=== PATIENT | female | born 1980 | race African-American/Black ===

== ENCOUNTER 2018-02-25 17:53 | Inpatient (IN) | payer OTHER ==
[2018-02-25 19:48] VITALS: BMI 26.2
[2018-02-25] MEDS ORDERED: MELATONIN 5 MG TABLETS PO PRN (22:00)
--- NOTE | 2018-02-25 22:05 | HP ---
CIWA Score - CIWA Score Nausea/Vomitin-No Nausea/No Vomiting Muscle Tremors: 4-Moderate,w/Arms Extend Anxiety: 4-Mod. Anxious/Guarded Agitation: 4-Moderately Restless Paroxysmal Sweats: 3 Orientation: 0-Oriented Tacttile Disturbances: 3-Moderate Itch/Numb/Burn Auditory Disturbances: 0-None Visual Disturbances: 0-None Headache: 0-None Present CIWA-Ar Total Score: 18 Admission ROS BHS - HPI Chief Complaint: C/O WITHDRAWAL SX'S. SEEKING DETOX TXMENT FOR ALCOHOL DEPENDENCE Allergies/Adverse Reactions: Allergies Allergy/AdvReac Type Severity Reaction Status Date / Time No Known Allergies Allergy Verified 02/25/18 21:11 History of Present Illness: 37 Y.O. FEMALE WITH LONG HX/ O ALCOHOL DEPENDENCE AND BENZO USE (RX) HERE FOR DETOX. CLIENT IS KNOWN TO THIS PROGRAM. LAST HERE SEVERAL YEARS AGO. DENIES RECENT INPATIENT DRUG TXMENT PROGRAM. REFERRED BY HER OOTPATIENT TXMENT PROGRAM PAT. REPORTS LONGEST CLEAN TIME 7 MONTHS WITH RECENT RELAPSE. Exam Limitations: No Limitations - Ebola screening Have you traveled outside of the country in the last 21 days: No Have you had contact with anyone from an Ebola affected area: No Have you been sick,other than usual withdrawal symptoms: No Do you have a fever: No - Review of Systems Constitutional: No Symptoms Reported EENT: reports: Dental Problems (MISSING TEETH) Respiratory: reports: No Symptoms reported Cardiac: reports: No Symptoms Reported GI: reports: No Symptoms Reported : reports: No Symptoms Reported Integumentary: reports: No Symptoms Reported Neuro: reports: No Symptoms reported Endocrine: reports: Other (DM) Hematology: reports: No Symptoms Reported Psychiatric: reports: Anxious Other Systems: Reviewed and Negative Patient History - Patient Medical History Hx Anemia: No Hx Asthma: No Hx Chronic Obstructive Pulmonary Disease (COPD): No Hx Cancer: Yes (ovarian) Hx Cardiac Disorders: No Hx Congestive Heart Failure: No Hx Hypertension: No Hx Hypercholesterolemia: No Hx Pacemaker: No HX Cerebrovascular Accident: No Hx Seizures: No Hx Dementia: No Hx Diabetes: Yes Hx Gastrointestinal Disorders: No Hx Liver Disease: No Hx Genitourinary Disorders: No Hx Sexually Transmitted Disorders: No Hx Renal Disease (ESRD): No Hx Thyroid Disease: No Hx Human Immunodeficiency Virus (HIV): No Hx Hepatitis C: No Hx Depression: No Hx Suicide Attempt: Yes (10 YEARS AGO: DENIES PRESNT THOUGHTS) Hx Bipolar Disorder: No Hx Schizophrenia: No Other Medical History: ANXIETY - Patient Surgical History Past Surgical History: No Hx Neurologic Surgery: No Hx Cataract Extraction: No Hx Cardiac Surgery: No Hx Lung Surgery: No Hx Breast Surgery: No Hx Breast Biopsy: No Hx Abdominal Surgery: No Hx Appendectomy: No Hx Cholecystectomy: No Hx Genitourinary Surgery: No Hx Section: No Hx Orthopedic Surgery: No Anesthesia Reaction: No - PPD History Previous Implant?: Yes Documented Results: Negative w/o proof Implanted On Prior [facility] Admission?: No Date: 09/26/12 PPD to be Administered?: Yes - Reproductive History Patient is a Female of Child Bearing Age (11 -55 yrs old): Yes Last Menstrual Period: 01/27/18 LMP comment: REG Patient : No (NEG C) - Smoking Cessation Smoking history: Current every day smoker Have you smoked in the past 12 months: Yes Aproximately how many cigarettes per day: 6 Cigars Per Day: 0 Hx Chewing Tobacco Use: No Initiated information on smoking cessation: Yes 'Breaking Loose' booklet given: 02/25/18 - Substance & Tx. History Hx Alcohol Use: Yes Hx Substance Use: Yes Substance Use Type: Alcohol, Cocaine, Prescribed (XANAX) Hx Substance Use Treatment: Yes ([facility]) - Substances Abused Alcohol Route: Oral Frequency: Daily Amount used: beer- 3 - 22oz cans Age of first use: 18 Date of Last Use: 02/25/18 Cocaine Route: Smoking Frequency: Daily Amount used: 2 bags Age of first use: 18 Date of Last Use: 02/24/18 RX XANAX Route: Oral Frequency: Daily Amount used: 1MG Age of first use: 36 Date of Last Use: 02/22/18 Family Disease History - Family Disease History Family Disease History: Diabetes: Mother (ALCOHOLISM/DRUG/), CA: Father (ALCOHOLISM/DRUG/), Other: Father, Mother Admission Physical Exam S - Vital Signs Vital Signs: Vital Signs - 24 hr 02/25/18 19:39 Temperature 97.0 F L Pulse Rate 90 Respiratory 18 Rate Blood Pressure 132/85 - Physical General Appearance: Yes: Appropriately Dressed, Tremorous, Anxious HEENTM: Yes: EOMI, Normocephalic, Normal Voice, LAURYN, Pharynx Normal, Other ( MISSING TEETH/ POOR DENTITION) Respiratory: Yes: Chest Non-Tender, Lungs Clear, Normal Breath Sounds, No Respiratory Distress, No Accessory Muscle Use Neck: Yes: No masses,lesions,Nodules, Supple, Trachea in good position Breast: Yes: Breast Exam Deferred Cardiology: Yes: Regular Rhythm, S1, S2, Tachycardia Abdominal: Yes: Normal Bowel Sounds, Non Tender, Soft, Protuberent Genitourinary: Yes: Within Normal Limits (NO C/O) Back: Yes: Normal Inspection Musculoskeletal: Yes: full range of Motion, Gait Steady Extremities: Yes: Normal Capillary Refill, Normal Range of Motion, Non-Tender, Tremors Neurological: Yes: court monitor II-XII NML intact, Fully Oriented, Alert, Motor Strength 5/5 Integumentary: Yes: Normal Color, Dry, Warm Lymphatic: Yes: Within Normal Limits - Diagnostic (1) Alcohol dependence with uncomplicated withdrawal Current Visit: Yes Status: Chronic (2) Sedative, hypnotic or anxiolytic dependence, uncomplicated Current Visit: Yes Status: Chronic (3) Cocaine abuse, uncomplicated Current Visit: Yes Status: Chronic (4) Nicotine dependence Current Visit: Yes Status: Chronic Qualifiers: Nicotine product type: cigarettes Substance use status: uncomplicated Qualified Code(s): F17.210 - Nicotine dependence, cigarettes, uncomplicated (5) Diabetes Current Visit: Yes Status: Chronic Cleared for Admission [facility] - Detox or Rehab [facility] Level of Care: Medically Managed Detox Regimen/Protocol: Valium (CLIENT PREFERENCE) Claeared for Rehab Admission: No S Breath Alcohol Content Breath Alcohol Content: 0.033 Urine Pregancy Test - Result Urine Test Results: Negative- NO Line Present Urine Drug Screen - Results Drug Screen Negative: No Urine Drug Screen Results: ARNOLD-Cocaine
[2018-02-25] MEDS ORDERED: P-EPHED 60MG/TRIPROLIDI 2.5MG TABLET PO PRN (22:18)
[2018-02-25] MEDS ORDERED: NICOTINE POLACRILEX 2 MG GUM BC PRN (22:18)
[2018-02-25] MEDS ORDERED: chlordiazePOXIDE HCL 25 MG CAPSULE PO PRN (22:18)
[2018-02-25] MEDS ORDERED: ACETAMINOPHEN 325 MG TABLET (FP) PO PRN (22:18)
[2018-02-25] MEDS ORDERED: MAGNESIUM CITRATE 300 ML BOTTLE PO PRN (22:18)
[2018-02-25] MEDS ORDERED: MAG HYDROX/AL HYDROX/SIMETH 30 ML UNIT-DOSE CUP PO PRN (22:18)
[2018-02-25] MEDS ORDERED: guaiFENesin/D-METHORPHAN HB 10 ML UNIT-DOSE CUPS PO PRN (22:18)
[2018-02-25] MEDS ORDERED: MENTHOL/PHENOL 1 EACH UD MM PRN (22:18)
[2018-02-25] MEDS ORDERED: MAGNESIUM HYDROX 2400MG/30ML ORAL SUSPENSION 30 ML CUP PO PRN (22:18)
[2018-02-25] MEDS ORDERED: hydrOXYzine PAMOATE 50 MG CAPSULE (FP) PO PRN (22:18)
[2018-02-25] MEDS ORDERED: LOPERAMIDE HCL 2 MG CAPSULE PO PRN (22:18)
[2018-02-25] MEDS: chlordiazePOXIDE HCL 25 MG CAPSULE PO SCH (23:36)
[2018-02-26] MEDS: chlordiazePOXIDE HCL 25 MG CAPSULE PO SCH ×4 (06:00→22:13)
--- NOTE | 2018-02-26 07:49 | CONSULT ---
[facility] Psychiatric Consult - Data Date of interview: 02/26/18 Admission source: [facility] Identifying data: This is 37 years old AA female, single mother of 12, living at [facility], unemployed, on PA, is here seeking for detoxification after abusing : Alcohol, Cocaine, Xanax and Nicotine. Patient reports psychiatric hospitalization history Substance Abuse History: Smoking history: Current every day smoker. Have you smoked in the past 12 months: Yes. Aproximately how many cigarettes per day: 6. Cigars Per Day: 0. Hx Chewing Tobacco Use: No. Initiated information on smoking cessation: Yes. 'Breaking Loose' booklet given: 02/25/18. - Substance & Tx. History. Hx Alcohol Use: Yes. Hx Substance Use: Yes. Substance Use Type : Alcohol, Cocaine, Prescribed (XANAX). Hx Substance Use Treatment: Yes ([facility] - Substances Abused. Alcohol. Route: Oral. Frequency: Daily. Amount used: beer- 3 - 22oz cans. Age of first use: 18. Date of Last Use: 10/04. Cocaine. Route: Smoking. Frequency: Daily. Amount used: 2 bags. Age of first use: 18. Date of Last Use: 02/24/18. RX XANAX. Route: Oral. Frequency: Daily. Amount used: 1MG. Age of first use: 36. Date of Last Use: 02/22/18 Medical History: DM, Syncope history Psychiatric History: Oatient reports history of depression and anxiety, reports most recent psychiatric admission on 3 months ago at [facility] for safety, reports insomnia, reports taking prior to admission: Seroquel 250mg po qhs. Denies suicidal and homicidal history, unclear suicidal hiostory on about 10 years ago as per computer. Physical/Sexual Abuse/Trauma History: Denies, unclear Additional Comment: Seroquel 250mg po qhs Mental Status Exam - Mental Status Exam Alert and Oriented to: Person Cognitive Function: Fair Patient Appearance: Unkempt Mood: Sad Affect: Flat Patient Behavior: Sedated Speech Pattern: Delayed Voice Loudness: Mildly Soft/Quiet Thought Process: Circumstantial Thought Disorder: Being Controlled Hallucinations: Denies Suicidal Ideation: Denies Homicidal Ideation: Denies Insight/Judgement: Fair Sleep: Difficulty falling asleep Appetite: Weight loss Muscle strength/Tone: Mild Hypotonicity Gait/Station: Shuffling Additional Comments: Seroquel 250mg po qhs Psychiatric Findings - Problem List ([place] 1, 2,3) (1) Drug-induced mood disorder Current Visit: Yes Status: Acute (2) Alcohol dependence with uncomplicated withdrawal Current Visit: Yes Status: Chronic (3) Cocaine abuse, uncomplicated Current Visit: Yes Status: Chronic (4) Nicotine dependence Current Visit: Yes Status: Chronic Qualifiers: Nicotine product type: cigarettes Substance use status: uncomplicated Qualified Code(s): F17.210 - Nicotine dependence, cigarettes, uncomplicated (5) Sedative, hypnotic or anxiolytic dependence, uncomplicated Current Visit: Yes Status: Chronic (6) Alcohol dependence Current Visit: No Status: Active (7) Cocaine dependence Current Visit: No Status: Active (8) anxiety and depression Current Visit: No Status: Active (9) cannabis dependence Current Visit: No Status: Active - Initial Treatment Plan Initial Treatment Plan: Seroquel 250mg po qhs
[2018-02-26] MEDS: sitaGLIPtin PHOSPHATE 25 MG TABLET (FP) PO SCH (08:51)
[2018-02-26 10:32] LABS: HEMATOCRIT 38.6 % (32.4-45.2); HEMOGLOBIN 13.2 GM/dL (10.7-15.3); MCHC 34.1 g/dl (32.0-36.0); MEAN CELL VOLUME 91.2 fl (80-96); MEAN PLT VOLUME 7.7 fl (7.5-11.1); PLATELET COUNT 339 K/MM3 (134-434); RBC 4.24 M/mm3 (3.60-5.2); RDW 14.5 % (11.6-15.6); WHITE BLOOD COUNT 10.1 K/mm3 (4.0-10.0)
[2018-02-26 10:52] LABS: ALBUMIN 3.3 g/dl (3.4-5.0); ANION GAP 6 (8-16); BILIRUBIN,TOTAL < 0.1 mg/dL (0.2-1.0); BLOOD UREA NITROGEN 17 mg/dL (7-18); CALCIUM 8.7 mg/dL (8.5-10.1); CHLORIDE 108 mmol/L (98-107); CO2 27 mmol/L (21-32); CREATININE 0.7 mg/dL (0.55-1.02); GLUCOSE,RANDOM 108 mg/dL (74-106); SGPT/ALT 31 U/L (12-78); SODIUM 141 mmol/L (136-145); TOT PROT 6.6 g/dl (6.4-8.2)
[2018-02-26 11:00] LABS: ALK PHOS 88 U/L (45-117); SGOT/AST 23 U/L (15-37)
[2018-02-26] MEDS: NICOTINE 14 MG/24 HOURS TOPICAL PATCH TD SCH (11:03)
[2018-02-26] MEDS: PRENATAL VITAMINS W/ FOLIC ACID TABLET (FP) PO SCH (11:03)
--- NOTE | 2018-02-26 11:17 | PN ---
S CIWA - CIWA Score Nausea/Vomitin Muscle Tremors: 3 Anxiety: 3 Agitation: 2 Paroxysmal Sweats: 1-Minimal Palms Moist Orientation: 0-Oriented Tacttile Disturbances: 1-Very Mild Itch/Numbness Auditory Disturbances: 1-Very Mild Visual Disturbances: 0-None Headache: 2-Mild CIWA-Ar Total Score: 16 BHS Progress Note (SOAP) Subjective: ALERT,IRRITABLE,ANXIOUS,INTERRUPTED SLEEP,TREMOR Objective: 02/26/18 11:14 Vital Signs Temperature 99.1 F 02/26/18 10:10 Pulse Rate 82 02/26/18 10:10 Respiratory Rate 20 02/26/18 10:10 Blood Pressure 105/64 02/26/18 10:10 O2 Sat by Pulse Oximetry (%) EKG NSR,NORMAL ECG 02/26/18 11:15 Vital Signs Temperature 99.1 F 02/26/18 10:10 Pulse Rate 82 02/26/18 10:10 Respiratory Rate 20 02/26/18 10:10 Blood Pressure 105/64 02/26/18 10:10 O2 Sat by Pulse Oximetry (%) Laboratory Last Values WBC 10.1 K/mm3 (4.0-10.0) H 02/26/18 07:00 RBC 4.24 M/mm3 (3.60-5.2) 02/26/18 07:00 Hgb 13.2 GM/dL (10.7-15.3) D 02/26/18 07:00 Hct 38.6 % (32.4-45.2) 02/26/18 07:00 MCV 91.2 fl (80-96) 02/26/18 07:00 MCH 31.0 pg (25.7-33.7) 02/26/18 07:00 MCHC 34.1 g/dl (32.0-36.0) 02/26/18 07:00 RDW 14.5 % (11.6-15.6) 02/26/18 07:00 Plt Count 339 K/MM3 (134-434) 02/26/18 07:00 MPV 7.7 fl (7.5-11.1) 02/26/18 07:00 Sodium 141 mmol/L (136-145) 02/26/18 07:00 Potassium 4.0 mmol/L (3.5-5.1) 02/26/18 07:00 Chloride 108 mmol/L (98-107) H 02/26/18 07:00 Carbon Dioxide 27 mmol/L (21-32) 02/26/18 07:00 Anion Gap 6 (8-16) L 02/26/18 07:00 BUN 17 mg/dL (7-18) 02/26/18 07:00 Creatinine 0.7 mg/dL (0.55-1.02) 02/26/18 07:00 Creat Clearance w eGFR > 60 (>60) 02/26/18 07:00 POC Glucometer 109 UNITS (80-120) 02/26/18 06:04 Random Glucose 108 mg/dL (74-106) H 02/26/18 07:00 Calcium 8.7 mg/dL (8.5-10.1) 02/26/18 07:00 Total Bilirubin < 0.1 mg/dL (0.2-1.0) L D 02/26/18 07:00 AST 23 U/L (15-37) 02/26/18 07:00 ALT 31 U/L (12-78) 02/26/18 07:00 Alkaline Phosphatase 88 U/L (45-117) 02/26/18 07:00 Total Protein 6.6 g/dl (6.4-8.2) 02/26/18 07:00 Albumin 3.3 g/dl (3.4-5.0) L 02/26/18 07:00 LABS PENDING Assessment: 02/26/18 11:16 WITHDRAWAL SYMPTOM Plan: CONTINUE DETOX
[2018-02-26 12:45] LABS: URINE APPEARANCE CLOUDY; URINE BILIRUBIN NEGATIVE (<2.0 mg/dL); URINE BLOOD NEGATIVE (NEGATIVE); URINE COLOR LTYELLOW; URINE GLUCOSE (UA) NEGATIVE (NEGATIVE); URINE KETONE NEGATIVE (NEGATIVE); URINE LEUK ESTERASE NEGATIVE (NEGATIVE); URINE NITRITE NEGATIVE (NEGATIVE); URINE PROTEIN NEGATIVE (NEGATIVE); URINE UROBILINOGEN NEGATIVE mg/dL (0.2-1.0)
--- NOTE | 2018-02-26 13:31 | EKG ---
Test Reason : Blood Pressure : / mmHG Vent. Rate : 083 BPM Atrial Rate : 083 BPM P-R Int : 208 ms QRS Dur : 086 ms QT Int : 388 ms P-R-T Axes : 044 059 039 degrees QTc Int : 455 ms NORMAL SINUS RHYTHM NORMAL ECG WHEN COMPARED WITH ECG OF 23-NOV-2012 14:27, PREMATURE VENTRICULAR COMPLEXES ARE NO LONGER PRESENT Confirmed by MELISSA HERNÁNDEZ MD ([id number]) on 02/26/2018 1:31:11 PM Referred By: Confirmed By:MELISSA HERNÁNDEZ MD
[2018-02-26] MEDS ORDERED: QUEtiapine FUMARATE 200 MG TABLET ONE (21:21)
[2018-02-26] MEDS ORDERED: QUEtiapine FUMARATE 50 MG TABLET ONE (21:21)
[2018-02-26] MEDS ORDERED: QUEtiapine FUMARATE 200 MG TABLET PO SCH (22:00)
[2018-02-26] MEDS: THIAMINE HCL 100 MG TABLET (FP) PO SCH (22:12)
[2018-02-26] MEDS: IBUPROFEN 400 MG TABLET (FP) PO PRN (22:12)
[2018-02-26] MEDS: QUETIAPINE FUMARATE 200 MG, QUETIAPINE FUMARATE 50 MG PO SCH (22:13)
[2018-02-27] MEDS: chlordiazePOXIDE HCL 25 MG CAPSULE PO SCH ×3 (05:20→17:56)
[2018-02-27] MEDS: sitaGLIPtin PHOSPHATE 25 MG TABLET (FP) PO SCH (07:24)
--- NOTE | 2018-02-27 10:19 | PN ---
S CIWA - CIWA Score Nausea/Vomitin Muscle Tremors: 3 Anxiety: 3 Agitation: 2 Paroxysmal Sweats: 1-Minimal Palms Moist Orientation: 0-Oriented Tacttile Disturbances: 1-Very Mild Itch/Numbness Auditory Disturbances: 1-Very Mild Visual Disturbances: 0-None Headache: 2-Mild CIWA-Ar Total Score: 16 BHS Progress Note (SOAP) Subjective: ALERT,IRRITABLE,ANXIOUS,INTERRUPTED SLEEP,PAIN IN THE BODY Objective: 02/27/18 10:17 Vital Signs Temperature 98.2 F 02/27/18 09:53 Pulse Rate 81 02/27/18 09:53 Respiratory Rate 16 02/27/18 09:53 Blood Pressure 102/60 02/27/18 09:53 O2 Sat by Pulse Oximetry (%) 02/27/18 10:17 Laboratory Last Values WBC 10.1 K/mm3 (4.0-10.0) H 02/26/18 07:00 RBC 4.24 M/mm3 (3.60-5.2) 02/26/18 07:00 Hgb 13.2 GM/dL (10.7-15.3) D 02/26/18 07:00 Hct 38.6 % (32.4-45.2) 02/26/18 07:00 MCV 91.2 fl (80-96) 02/26/18 07:00 MCH 31.0 pg (25.7-33.7) 02/26/18 07:00 MCHC 34.1 g/dl (32.0-36.0) 02/26/18 07:00 RDW 14.5 % (11.6-15.6) 02/26/18 07:00 Plt Count 339 K/MM3 (134-434) 02/26/18 07:00 MPV 7.7 fl (7.5-11.1) 02/26/18 07:00 Sodium 141 mmol/L (136-145) 02/26/18 07:00 Potassium 4.0 mmol/L (3.5-5.1) 02/26/18 07:00 Chloride 108 mmol/L (98-107) H 02/26/18 07:00 Carbon Dioxide 27 mmol/L (21-32) 02/26/18 07:00 Anion Gap 6 (8-16) L 02/26/18 07:00 BUN 17 mg/dL (7-18) 02/26/18 07:00 Creatinine 0.7 mg/dL (0.55-1.02) 02/26/18 07:00 Creat Clearance w eGFR > 60 (>60) 02/26/18 07:00 POC Glucometer 109 UNITS (80-120) 02/26/18 06:04 Random Glucose 108 mg/dL (74-106) H 02/26/18 07:00 Calcium 8.7 mg/dL (8.5-10.1) 02/26/18 07:00 Total Bilirubin < 0.1 mg/dL (0.2-1.0) L D 02/26/18 07:00 AST 23 U/L (15-37) 02/26/18 07:00 ALT 31 U/L (12-78) 02/26/18 07:00 Alkaline Phosphatase 88 U/L (45-117) 02/26/18 07:00 Total Protein 6.6 g/dl (6.4-8.2) 02/26/18 07:00 Albumin 3.3 g/dl (3.4-5.0) L 02/26/18 07:00 Urine Color Ltyellow 02/26/18 10:45 Urine Appearance Cloudy 02/26/18 10:45 Urine pH 6.0 (5.0-8.0) 02/26/18 10:45 Ur Specific [place] 1.023 (1.001-1.035) 02/26/18 10:45 Urine Protein Negative (NEGATIVE) 02/26/18 10:45 Urine Glucose (UA) Negative (NEGATIVE) 02/26/18 10:45 Urine Ketones Negative (NEGATIVE) 02/26/18 10:45 Urine Blood Negative (NEGATIVE) 02/26/18 10:45 Urine Nitrite Negative (NEGATIVE) 02/26/18 10:45 Urine Bilirubin Negative (<2.0 mg/dL) 02/26/18 10:45 Urine Urobilinogen Negative mg/dL (0.2-1.0) 02/26/18 10:45 Ur Leukocyte Esterase Negative (NEGATIVE) 02/26/18 10:45 RPR Titer Nonreactive (NONREACTIVE) 02/26/18 07:00 HIV 1&2 Antibody Screen Negative 02/26/18 07:00 HIV P24 Antigen Negative 02/26/18 07:00 Assessment: 02/27/18 10:18 WITHDRAWAL SYMPTOM Plan: CONTINUE DETOX
[2018-02-27] MEDS: PRENATAL VITAMINS W/ FOLIC ACID TABLET (FP) PO SCH (11:09)
[2018-02-27] MEDS: NICOTINE 14 MG/24 HOURS TOPICAL PATCH TD SCH (11:09)
[2018-02-27] MEDS: IBUPROFEN 400 MG TABLET (FP) PO PRN (11:10)
[2018-02-27] MEDS ORDERED: QUEtiapine FUMARATE 50 MG TABLET ONE (21:48)
[2018-02-27] MEDS ORDERED: QUEtiapine FUMARATE 200 MG TABLET ONE (21:48)
[2018-02-27] MEDS: THIAMINE HCL 100 MG TABLET (FP) PO SCH (22:14)
[2018-02-27] MEDS: QUETIAPINE FUMARATE 200 MG, QUETIAPINE FUMARATE 50 MG PO SCH (22:14)
[2018-02-27] MEDS: chlordiazePOXIDE 5 MG CAPSULE PO SCH (22:14)
[2018-02-28] MEDS: chlordiazePOXIDE 5 MG CAPSULE PO SCH ×3 (05:33→17:42)
[2018-02-28] MEDS: sitaGLIPtin PHOSPHATE 25 MG TABLET (FP) PO SCH (06:44)
[2018-02-28] MEDS: NICOTINE 14 MG/24 HOURS TOPICAL PATCH TD SCH (10:46)
[2018-02-28] MEDS: PRENATAL VITAMINS W/ FOLIC ACID TABLET (FP) PO SCH (10:46)
--- NOTE | 2018-02-28 12:17 | PN ---
S Progress Note (SOAP) Subjective: ALERT,IRRITABLE,ANXIOUS,INTERRUPTED SLEEP,PAIN IN THE BODY Objective: 02/28/18 12:17 Vital Signs Temperature 97.5 F L 02/28/18 10:41 Pulse Rate 91 H 02/28/18 10:41 Respiratory Rate 18 02/28/18 10:41 Blood Pressure 115/65 02/28/18 10:41 O2 Sat by Pulse Oximetry (%) Laboratory Last Values WBC 10.1 K/mm3 (4.0-10.0) H 02/26/18 07:00 RBC 4.24 M/mm3 (3.60-5.2) 02/26/18 07:00 Hgb 13.2 GM/dL (10.7-15.3) D 02/26/18 07:00 Hct 38.6 % (32.4-45.2) 02/26/18 07:00 MCV 91.2 fl (80-96) 02/26/18 07:00 MCH 31.0 pg (25.7-33.7) 02/26/18 07:00 MCHC 34.1 g/dl (32.0-36.0) 02/26/18 07:00 RDW 14.5 % (11.6-15.6) 02/26/18 07:00 Plt Count 339 K/MM3 (134-434) 02/26/18 07:00 MPV 7.7 fl (7.5-11.1) 02/26/18 07:00 Sodium 141 mmol/L (136-145) 02/26/18 07:00 Potassium 4.0 mmol/L (3.5-5.1) 02/26/18 07:00 Chloride 108 mmol/L (98-107) H 02/26/18 07:00 Carbon Dioxide 27 mmol/L (21-32) 02/26/18 07:00 Anion Gap 6 (8-16) L 02/26/18 07:00 BUN 17 mg/dL (7-18) 02/26/18 07:00 Creatinine 0.7 mg/dL (0.55-1.02) 02/26/18 07:00 Creat Clearance w eGFR > 60 (>60) 02/26/18 07:00 POC Glucometer 109 UNITS (80-120) 02/26/18 06:04 Random Glucose 108 mg/dL (74-106) H 02/26/18 07:00 Calcium 8.7 mg/dL (8.5-10.1) 02/26/18 07:00 Total Bilirubin < 0.1 mg/dL (0.2-1.0) L D 02/26/18 07:00 AST 23 U/L (15-37) 02/26/18 07:00 ALT 31 U/L (12-78) 02/26/18 07:00 Alkaline Phosphatase 88 U/L (45-117) 02/26/18 07:00 Total Protein 6.6 g/dl (6.4-8.2) 02/26/18 07:00 Albumin 3.3 g/dl (3.4-5.0) L 02/26/18 07:00 Urine Color Ltyellow 02/26/18 10:45 Urine Appearance Cloudy 02/26/18 10:45 Urine pH 6.0 (5.0-8.0) 02/26/18 10:45 Ur Specific [place] 1.023 (1.001-1.035) 02/26/18 10:45 Urine Protein Negative (NEGATIVE) 02/26/18 10:45 Urine Glucose (UA) Negative (NEGATIVE) 02/26/18 10:45 Urine Ketones Negative (NEGATIVE) 02/26/18 10:45 Urine Blood Negative (NEGATIVE) 02/26/18 10:45 Urine Nitrite Negative (NEGATIVE) 02/26/18 10:45 Urine Bilirubin Negative (<2.0 mg/dL) 02/26/18 10:45 Urine Urobilinogen Negative mg/dL (0.2-1.0) 02/26/18 10:45 Ur Leukocyte Esterase Negative (NEGATIVE) 02/26/18 10:45 RPR Titer Nonreactive (NONREACTIVE) 02/26/18 07:00 HIV 1&2 Antibody Screen Negative 02/26/18 07:00 HIV P24 Antigen Negative 02/26/18 07:00 Assessment: 02/28/18 12:18 WITHDRAWAL SYMPTOM,BGM 133 02/28/18 12:19 Plan: CONTINUE DETOX,BGM MONITORING
[2018-02-28] MEDS ORDERED: QUEtiapine FUMARATE 50 MG TABLET ONE (21:55)
[2018-02-28] MEDS ORDERED: QUEtiapine FUMARATE 200 MG TABLET ONE (21:55)
[2018-02-28] MEDS: THIAMINE HCL 100 MG TABLET (FP) PO SCH (22:19)
[2018-02-28] MEDS: chlordiazePOXIDE HCL 10 MG CAPSULE PO SCH (22:19)
[2018-02-28] MEDS: QUETIAPINE FUMARATE 200 MG, QUETIAPINE FUMARATE 50 MG PO SCH (22:19)
[2018-03-01] MEDS: chlordiazePOXIDE HCL 10 MG CAPSULE PO SCH (05:17)
[2018-03-01 06:38] VITALS: BP 100/64; PULSE 82; TEMP 97.7
[2018-03-01] MEDS: sitaGLIPtin PHOSPHATE 25 MG TABLET (FP) PO SCH (07:30)
--- NOTE | 2018-03-01 10:19 | DS ---
[facility] Detox Discharge Summary Admission Date: 02/25/18 Discharge Date: 03/01/18 - History Present History: Alcohol Dependence Additional Comments: 37 years old male admitted for alcohol detox completed alcohol detox regimen tolerated [facility] patient is alert oriented x 3 no acute distress cardiac s1s2 - Physical Exam Results Vital Signs: Vital Signs Temperature 97.7 F 03/01/18 06:36 Pulse Rate 82 03/01/18 06:36 Respiratory Rate 16 03/01/18 06:36 Blood Pressure 100/64 03/01/18 06:36 O2 Sat by Pulse Oximetry (%) Pertinent Admission Physical Exam Findings: withdrawal sx Laboratory Last Values WBC 10.1 K/mm3 (4.0-10.0) H 02/26/18 07:00 RBC 4.24 M/mm3 (3.60-5.2) 02/26/18 07:00 Hgb 13.2 GM/dL (10.7-15.3) D 02/26/18 07:00 Hct 38.6 % (32.4-45.2) 02/26/18 07:00 MCV 91.2 fl (80-96) 02/26/18 07:00 MCH 31.0 pg (25.7-33.7) 02/26/18 07:00 MCHC 34.1 g/dl (32.0-36.0) 02/26/18 07:00 RDW 14.5 % (11.6-15.6) 02/26/18 07:00 Plt Count 339 K/MM3 (134-434) 02/26/18 07:00 MPV 7.7 fl (7.5-11.1) 02/26/18 07:00 Sodium 141 mmol/L (136-145) 02/26/18 07:00 Potassium 4.0 mmol/L (3.5-5.1) 02/26/18 07:00 Chloride 108 mmol/L (98-107) H 02/26/18 07:00 Carbon Dioxide 27 mmol/L (21-32) 02/26/18 07:00 Anion Gap 6 (8-16) L 02/26/18 07:00 BUN 17 mg/dL (7-18) 02/26/18 07:00 Creatinine 0.7 mg/dL (0.55-1.02) 02/26/18 07:00 Creat Clearance w eGFR > 60 (>60) 02/26/18 07:00 POC Glucometer 109 UNITS (80-120) 02/26/18 06:04 Random Glucose 108 mg/dL (74-106) H 02/26/18 07:00 Calcium 8.7 mg/dL (8.5-10.1) 02/26/18 07:00 Total Bilirubin < 0.1 mg/dL (0.2-1.0) L D 02/26/18 07:00 AST 23 U/L (15-37) 02/26/18 07:00 ALT 31 U/L (12-78) 02/26/18 07:00 Alkaline Phosphatase 88 U/L (45-117) 02/26/18 07:00 Total Protein 6.6 g/dl (6.4-8.2) 02/26/18 07:00 Albumin 3.3 g/dl (3.4-5.0) L 02/26/18 07:00 Urine Color Ltyellow 02/26/18 10:45 Urine Appearance Cloudy 02/26/18 10:45 Urine pH 6.0 (5.0-8.0) 02/26/18 10:45 Ur Specific [place] 1.023 (1.001-1.035) 02/26/18 10:45 Urine Protein Negative (NEGATIVE) 02/26/18 10:45 Urine Glucose (UA) Negative (NEGATIVE) 02/26/18 10:45 Urine Ketones Negative (NEGATIVE) 02/26/18 10:45 Urine Blood Negative (NEGATIVE) 02/26/18 10:45 Urine Nitrite Negative (NEGATIVE) 02/26/18 10:45 Urine Bilirubin Negative (<2.0 mg/dL) 02/26/18 10:45 Urine Urobilinogen Negative mg/dL (0.2-1.0) 02/26/18 10:45 Ur Leukocyte Esterase Negative (NEGATIVE) 02/26/18 10:45 RPR Titer Nonreactive (NONREACTIVE) 02/26/18 07:00 HIV 1&2 Antibody Screen Negative 02/26/18 07:00 HIV P24 Antigen Negative 02/26/18 07:00 lab noted - Treatment Hospital Course: Detox Protocol Followed, Detoxed Safely, Responded well, Discharged Condition Good, Rehab Referral Accepted Patient has Accepted a Rehab Referral to: [facility] - Medication Discharge Medications: Ambulatory Orders Alprazolam [Xanax] 1 mg PO DAILY 02/25/18 Quetiapine Fumarate [Seroquel -] 250 mg PO HS #30 tablet 02/26/18 Sitagliptin Phosphate [Januvia] 25 mg PO DAILY #30 tablet 03/01/18 - Diagnosis (1) Alcohol dependence with uncomplicated withdrawal Current Visit: Yes Status: Acute (2) Diabetes Current Visit: Yes Status: Chronic Qualifiers: Diabetes mellitus type: type 2 Diabetes mellitus alf insulin use: without alf use Diabetes mellitus complication status: without complication Qualified Code(s): E11.9 - Type 2 diabetes mellitus without complications (3) Nicotine dependence Current Visit: Yes Status: Acute Qualifiers: Nicotine product type: cigarettes Substance use status: in withdrawal Qualified Code(s): F17.213 - Nicotine dependence, cigarettes, with withdrawal (4) Sedative, hypnotic or anxiolytic dependence, uncomplicated Current Visit: Yes Status: Acute - AMA Did Patient Leave Against Medical Advice: No
[2018-03-01] MEDS: NICOTINE 14 MG/24 HOURS TOPICAL PATCH TD SCH (10:22)
[2018-03-01] MEDS: PRENATAL VITAMINS W/ FOLIC ACID TABLET (FP) PO SCH (10:22)
== END 2018-03-01 11:02 | disposition home or self-care (01) | DRG 774 ==
LOC: YASAS 17:53 → Y6N 21:19
PROVIDERS: ADMIT Internal Medicine; ATTEND Internal Medicine
PROC: HZ2ZZZZ Detoxification Services for Substance Abuse Treatment (ICD-10-PCS; principal; 2018-02-25)
DX: F13.230 Sedative, hypnotic or anxiolytic dependence with withdrawal, uncomplicated (principal); F10.230 Alcohol dependence with withdrawal, uncomplicated; F17.213 Nicotine dependence, cigarettes, with withdrawal; F14.20 Cocaine dependence, uncomplicated; F12.20 Cannabis dependence, uncomplicated; F19.24 Other psychoactive substance dependence with psychoactive substance-induced mood disorder; F41.8 Other specified anxiety disorders; E11.9 Type 2 diabetes mellitus without complications; Z79.84 Long term (current) use of oral hypoglycemic drugs; Z91.5 Personal history of self-harm
CPT/HCPCS: 36415; 80053; 81003; 82962; 85027; 86593; 87389; 93005; 93010

== ENCOUNTER 2018-04-22 10:31 | Inpatient (IN) | payer OTHER ==
[2018-04-22 11:28] VITALS: BMI 27.7
--- NOTE | 2018-04-22 13:00 | HP ---
CIWA Score - CIWA Score Nausea/Vomitin Muscle Tremors: 3 Anxiety: 3 Agitation: 3 Paroxysmal Sweats: 1-Minimal Palms Moist Orientation: 0-Oriented Tacttile Disturbances: 1-Very Mild Itch/Numbness Auditory Disturbances: 1-Very Mild Visual Disturbances: 0-None Headache: 2-Mild CIWA-Ar Total Score: 17 Admission ROS BHS - HPI Chief Complaint: i need help to stop drinking alcohol and cocaine Allergies/Adverse Reactions: Allergies Allergy/AdvReac Type Severity Reaction Status Date / Time No Known Allergies Allergy Verified 02/25/18 21:11 History of Present Illness: this 37 years old female with alcohol and cocaine dependence,seeking withdrawal symptom last detox [facility] 02/25/18 to 03/01/18 syncope alcohol related heart murmur type 2 dm weight loss schizoaffective disorder left kidney stone longest period of sobriety 8 months Exam Limitations: No Limitations - Ebola screening Have you traveled outside of the country in the last 21 days: No (N) Have you had contact with anyone from an Ebola affected area: No Have you been sick,other than usual withdrawal symptoms: No Do you have a fever: No - Review of Systems Constitutional: Loss of Appetite, Malaise, Night Sweats, Changes in sleep, Unintentional Wgt. Loss EENT: reports: Nose Congestion Respiratory: reports: No Symptoms reported Cardiac: reports: Palpitations GI: reports: Diarrhea, Nausea, Vomiting, Abdominal cramping : reports: No Symptoms Reported Musculoskeletal: reports: Back Pain, Muscle Pain Integumentary: reports: Dryness Neuro: reports: Headache, Tremors Endocrine: reports: No Symptoms Reported Hematology: reports: No Symptoms Reported Psychiatric: reports: No Sypmtoms Reported, Judgement Intact, Mood/Affect Appropiate, Orientated x3 Patient History - Patient Medical History Hx Anemia: No Hx Asthma: No Hx Chronic Obstructive Pulmonary Disease (COPD): No Hx Cancer: Yes (cervix at age of 18 years) Hx Cardiac Disorders: No Hx Congestive Heart Failure: No Hx Hypertension: No Hx Hypercholesterolemia: No Hx Pacemaker: No HX Cerebrovascular Accident: No Hx Seizures: No Hx Dementia: No Hx Diabetes: Yes (gestation diabetes) Hx Gastrointestinal Disorders: No Hx Liver Disease: No Hx Genitourinary Disorders: No Hx Sexually Transmitted Disorders: No Hx Renal Disease (ESRD): No Hx Thyroid Disease: No Hx Human Immunodeficiency Virus (HIV): No Hx Hepatitis C: No Hx Depression: No Hx Suicide Attempt: Yes (overdose 2017) Hx Bipolar Disorder: No Hx Schizophrenia: Yes (schizoaffective disorder) Other Medical History: no suicidal,no homicidal - Patient Surgical History Past Surgical History: No Hx Neurologic Surgery: No Hx Cataract Extraction: No Hx Cardiac Surgery: No Hx Lung Surgery: No Hx Breast Surgery: No Hx Breast Biopsy: No Hx Abdominal Surgery: No Hx Appendectomy: No Hx Cholecystectomy: No Hx Genitourinary Surgery: No Hx Section: No Hx Orthopedic Surgery: No Anesthesia Reaction: No - PPD History Previous Implant?: Yes Documented Results: Negative w/proof Date: 02/27/18 Results: 0 mm PPD to be Administered?: No - Reproductive History Patient is a Female of Child Bearing Age (11 -55 yrs old): Yes Last Menstrual Period: 04/08/18 Patient : No - Smoking Cessation Smoking history: Current every day smoker Have you smoked in the past 12 months: Yes Aproximately how many cigarettes per day: 6 Cigars Per Day: 0 Hx Chewing Tobacco Use: No Initiated information on smoking cessation: Yes 'Breaking Loose' booklet given: 04/22/18 - Substance & Tx. History Hx Alcohol Use: Yes Hx Substance Use: Yes Substance Use Type: Alcohol, Cocaine Hx Substance Use Treatment: Yes ([facility] 02/25/18 to 03/01/18) - Substances Abused Alcohol Route: Oral Frequency: Daily Amount used: 2 24 OZ CANS OF BEER Age of first use: 16 Date of Last Use: 04/22/18 Crack Route: Smoking Frequency: Daily Amount used: $40 Age of first use: 16 Date of Last Use: 04/22/18 Family Disease History - Family Disease History Family Disease History: Diabetes: Mother (ALCOHOLISM/DRUG/), CA: Father (ALCOHOLISM/DRUG/), Other: Father, Mother Admission Physical Exam BHS - Vital Signs Vital Signs: Vital Signs - 24 hr 04/22/18 11:14 Temperature 98 F Pulse Rate 100 H Respiratory 20 Rate Blood Pressure 119/66 - Physical General Appearance: Yes: Moderate Distress, Tremorous, Irritable, Sweating, Anxious HEENTM: Yes: Normocephalic, LAURYN, Pharynx Normal Respiratory: Yes: Lungs Clear, Normal Breath Sounds, No Respiratory Distress Neck: Yes: Within Normal Limits, Supple, Trachea in good position Breast: Yes: Breast Exam Deferred Cardiology: Yes: Murmur, Tachycardia Abdominal: Yes: Within Normal Limits, Normal Bowel Sounds, Non Tender, Flat, Soft Genitourinary: Yes: Within Normal Limits Back: Yes: Muscle Spasm Musculoskeletal: Yes: full range of Motion, Back pain, Muscle Pain Extremities: Yes: Normal Range of Motion, Tremors 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, Alert, Motor Strength 5/5 Integumentary: Yes: Dry Lymphatic: Yes: Within Normal Limits - Diagnostic (1) Alcohol dependence with uncomplicated withdrawal Current Visit: No Status: Acute (2) Gestational diabetes mellitus Current Visit: Yes Status: Acute (3) Cocaine dependence Current Visit: No Status: Active (4) syncope alcohol related Current Visit: No Status: Active (5) Nicotine dependence Current Visit: No Status: Acute Qualifiers: Nicotine product type: cigarettes Substance use status: in withdrawal Qualified Code(s): F17.213 - Nicotine dependence, cigarettes, with withdrawal Cleared for Admission [facility] - Detox or Rehab [facility] Level of Care: Medically Managed Detox Regimen/Protocol: Librium [facility] Breath Alcohol Content Breath Alcohol Content: 0.008 Urine Pregancy Test - Result Urine Test Results: Negative- NO Line Present Urine Drug Screen - Results Drug Screen Negative: No Urine Drug Screen Results: ARNOLD-Cocaine
[2018-04-22] MEDS ORDERED: MAGNESIUM CITRATE 300 ML BOTTLE PO PRN (13:16)
[2018-04-22] MEDS ORDERED: NICOTINE POLACRILEX 2 MG GUM BC PRN (13:16)
[2018-04-22] MEDS ORDERED: IBUPROFEN 400 MG TABLET (FP) PO PRN (13:16)
[2018-04-22] MEDS ORDERED: LOPERAMIDE HCL 2 MG CAPSULE PO PRN (13:16)
[2018-04-22] MEDS ORDERED: MENTHOL/PHENOL 1 EACH UD MM PRN (13:16)
[2018-04-22] MEDS ORDERED: chlordiazePOXIDE HCL 25 MG CAPSULE PO PRN (13:16)
[2018-04-22] MEDS ORDERED: MAG HYDROX/AL HYDROX/SIMETH 30 ML UNIT-DOSE CUP PO PRN (13:16)
[2018-04-22] MEDS ORDERED: P-EPHED 60MG/TRIPROLIDI 2.5MG TABLET PO PRN (13:16)
[2018-04-22] MEDS ORDERED: ACETAMINOPHEN 325 MG TABLET (FP) PO PRN (13:16)
[2018-04-22] MEDS ORDERED: guaiFENesin/D-METHORPHAN HB 10 ML UNIT-DOSE CUPS PO PRN (13:16)
[2018-04-22] MEDS ORDERED: hydrOXYzine PAMOATE 25 MG CAPSULE (FP) PO PRN (13:16)
[2018-04-22] MEDS ORDERED: MAGNESIUM HYDROX 2400MG/30ML ORAL SUSPENSION 30 ML CUP PO PRN (13:16)
[2018-04-22] MEDS ORDERED: chlordiazePOXIDE HCL 25 MG CAPSULE PO ONE (13:45)
[2018-04-22] MEDS: chlordiazePOXIDE HCL 25 MG CAPSULE PO SCH ×2 (17:09→22:28)
[2018-04-22] MEDS ORDERED: MELATONIN 5 MG TABLETS PO PRN (22:00)
[2018-04-22] MEDS: THIAMINE HCL 100 MG TABLET (FP) PO SCH (22:28)
[2018-04-23] MEDS: chlordiazePOXIDE HCL 25 MG CAPSULE PO SCH ×4 (05:35→22:23)
[2018-04-23 07:04] LABS: URINE APPEARANCE CLOUDY; URINE BILIRUBIN NEGATIVE (<2.0 mg/dL); URINE BLOOD NEGATIVE (NEGATIVE); URINE COLOR YELLOW; URINE GLUCOSE (UA) NEGATIVE (NEGATIVE); URINE KETONE NEGATIVE (NEGATIVE); URINE LEUK ESTERASE NEGATIVE (NEGATIVE); URINE NITRITE NEGATIVE (NEGATIVE); URINE PROTEIN NEGATIVE (NEGATIVE); URINE UROBILINOGEN NEGATIVE mg/dL (0.2-1.0)
--- NOTE | 2018-04-23 07:32 | CONSULT ---
[facility] Psychiatric Consult - Data Date of interview: 04/23/18 Admission source: [facility] Identifying data: This is 37 years old female, single mother of three, living with family with alcohol and cocaine dependence,seeking withdrawal symptom last detox [facility] 02/25/18 to 03/01/18. syncope alcohol related. heart murmur. type 2 dm. weight loss. schizoaffective disorder. left kidney stone. longest period of sobriety 8 months Substance Abuse History: Urine Drug Screen Results: ARNOLD-Cocaine. - Smoking Cessation. Smoking history: Current every day smoker. Have you smoked in the past 12 months: Yes. Aproximately how many cigarettes per day: 6. Cigars Per Day: 0. Hx Chewing Tobacco Use: No. Initiated information on smoking cessation : Yes. 'Breaking Loose' booklet given: 04/22/18. - Substance & Tx. History. Hx Alcohol Use: Yes. Hx Substance Use: Yes. Substance Use Type: Alcohol, Cocaine. Hx Substance Use Treatment: Yes ([facility] 02/25/18 to 03/01/18) Medical History: DM, Syncope history Psychiatric History: Patient reports history of depression and anxiety, denies psychiatric hospitalization history, reports taking prior to admission: Seroquel 100mg poqd, 200mg po qhs. As per computer there is a history of Schizophrenia Physical/Sexual Abuse/Trauma History: Denies Additional Comment: Urine Drug Screen Results: ARNOLD-Cocaine. Seroquel 100mg poqd , 200mg po qhs Mental Status Exam - Mental Status Exam Alert and Oriented to: Person Cognitive Function: Fair Patient Appearance: Unkempt Mood: Sad Affect: Flat Patient Behavior: Sedated Speech Pattern: Delayed Voice Loudness: Mildly Soft/Quiet Thought Process: Circumstantial Thought Disorder: Being Controlled Hallucinations: Denies Suicidal Ideation: Denies Homicidal Ideation: Denies Insight/Judgement: Fair Sleep: Difficulty falling asleep Appetite: Fair Muscle strength/Tone: Mild Hypotonicity Gait/Station: Shuffling Additional Comments: Seroquel 100mg poqd, 200mg po qhs Psychiatric Findings - Problem List ([place] 1, 2,3) (1) Gestational diabetes mellitus Current Visit: Yes Status: Acute (2) Alcohol dependence Current Visit: No Status: Active (3) Cocaine dependence Current Visit: No Status: Active (4) anxiety and depression Current Visit: No Status: Active (5) Alcohol dependence with uncomplicated withdrawal Current Visit: No Status: Acute (6) Drug-induced mood disorder Current Visit: No Status: Acute (7) Nicotine dependence Current Visit: No Status: Acute Qualifiers: Nicotine product type: cigarettes Substance use status: in withdrawal Qualified Code(s): F17.213 - Nicotine dependence, cigarettes, with withdrawal (8) Sedative, hypnotic or anxiolytic dependence, uncomplicated Current Visit: No Status: Acute (9) Cocaine abuse, uncomplicated Current Visit: No Status: Chronic (10) Schizophrenia Current Visit: Yes Status: Suspected - Initial Treatment Plan Initial Treatment Plan: Seroquel 100mg poqd, 200mg po qhs
--- NOTE | 2018-04-23 10:05 | PN ---
S CIWA - CIWA Score Nausea/Vomitin Muscle Tremors: 3 Anxiety: 3 Agitation: 2 Paroxysmal Sweats: 1-Minimal Palms Moist Orientation: 0-Oriented Tacttile Disturbances: 1-Very Mild Itch/Numbness Auditory Disturbances: 1-Very Mild Visual Disturbances: 0-None Headache: 2-Mild CIWA-Ar Total Score: 16 BHS Progress Note (SOAP) Subjective: alert,irritable,anxious,interrupted sleep,tremor Objective: 04/23/18 10:01 Vital Signs Temperature 97.7 F 04/23/18 09:14 Pulse Rate 68 04/23/18 09:14 Respiratory Rate 18 04/23/18 09:14 Blood Pressure 91/61 04/23/18 09:14 O2 Sat by Pulse Oximetry (%) ekg sinus rhythm with sinus arrhythmia ist degree av block no chest pain,no sob,no dizziness Laboratory Last Values POC Glucometer 156 UNITS (80-120) 04/23/18 05:40 Urine Color Yellow 04/22/18 22:00 Urine Appearance Cloudy 04/22/18 22:00 Urine pH 5.0 (5.0-8.0) 04/22/18 22:00 Ur Specific [place] 1.011 (1.001-1.035) 04/22/18 22:00 Urine Protein Negative (NEGATIVE) 04/22/18 22:00 Urine Glucose (UA) Negative (NEGATIVE) 04/22/18 22:00 Urine Ketones Negative (NEGATIVE) 04/22/18 22:00 Urine Blood Negative (NEGATIVE) 04/22/18 22:00 Urine Nitrite Negative (NEGATIVE) 04/22/18 22:00 Urine Bilirubin Negative (<2.0 mg/dL) 04/22/18 22:00 Urine Urobilinogen Negative mg/dL (0.2-1.0) 04/22/18 22:00 Ur Leukocyte Esterase Negative (NEGATIVE) 04/22/18 22:00 labs pending Assessment: 04/23/18 10:04 withdrawal symptom Plan: continue detox,bgm monitoring
[2018-04-23] MEDS: PRENATAL VITAMINS W/ FOLIC ACID TABLET (FP) PO SCH (10:15)
[2018-04-23] MEDS: QUEtiapine FUMARATE 100 MG TABLET (FP) PO SCH (10:15)
[2018-04-23 10:31] LABS: HEMATOCRIT 42.7 % (32.4-45.2); HEMOGLOBIN 14.4 GM/dL (10.7-15.3); MCH 30.9 pg (25.7-33.7); MCHC 33.7 g/dl (32.0-36.0); MEAN CELL VOLUME 91.7 fl (80-96); PLATELET COUNT 497 K/MM3 (134-434); RBC 4.65 M/mm3 (3.60-5.2); RDW 13.8 % (11.6-15.6); WHITE BLOOD COUNT 9.7 K/mm3 (4.0-10.0)
[2018-04-23 10:48] LABS: CHLORIDE 101 mmol/L (98-107); POTASSIUM 3.8 mmol/L (3.5-5.1); SODIUM 138 mmol/L (136-145)
[2018-04-23] MEDS: sitaGLIPtin PHOSPHATE 25 MG TABLET (FP) PO SCH (11:34)
--- NOTE | 2018-04-23 11:44 | EKG ---
Test Reason : Blood Pressure : / mmHG Vent. Rate : 076 BPM Atrial Rate : 076 BPM P-R Int : 220 ms QRS Dur : 088 ms QT Int : 402 ms P-R-T Axes : 011 006 027 degrees QTc Int : 452 ms SINUS RHYTHM WITH SINUS ARRHYTHMIA WITH 1ST DEGREE A-V BLOCK OTHERWISE NORMAL ECG WHEN COMPARED WITH ECG OF 25-FEB-2018 23:25, NO SIGNIFICANT CHANGE WAS FOUND Confirmed by BETTY BARAJAS, MELISSA ([id number]) on 04/23/2018 11:43:32 AM Referred By: Confirmed By:MELISSA HERNÁNDEZ MD
[2018-04-23 12:05] LABS: ALBUMIN 3.9 g/dl (3.4-5.0); ALK PHOS 94 U/L (45-117); ANION GAP 11 (8-16); BLOOD UREA NITROGEN 9 mg/dL (7-18); CALCIUM 9.7 mg/dL (8.5-10.1); CO2 26 mmol/L (21-32); SGPT/ALT 26 U/L (12-78)
[2018-04-23 12:10] LABS: BILIRUBIN,TOTAL 0.3 mg/dL (0.2-1.0); CREATININE 0.8 mg/dL (0.55-1.02); GLUCOSE,RANDOM 113 mg/dL (74-106); SGOT/AST 18 U/L (15-37); TOT PROT 7.9 g/dl (6.4-8.2)
[2018-04-23] MEDS: QUEtiapine FUMARATE 200 MG TABLET PO SCH (22:22)
[2018-04-23] MEDS: THIAMINE HCL 100 MG TABLET (FP) PO SCH (22:22)
[2018-04-24] MEDS: chlordiazePOXIDE HCL 25 MG CAPSULE PO SCH ×2 (05:25→10:44)
[2018-04-24] MEDS: QUEtiapine FUMARATE 100 MG TABLET (FP) PO SCH (10:44)
[2018-04-24] MEDS: PRENATAL VITAMINS W/ FOLIC ACID TABLET (FP) PO SCH (10:44)
[2018-04-24] MEDS: sitaGLIPtin PHOSPHATE 25 MG TABLET (FP) PO SCH (10:45)
--- NOTE | 2018-04-24 12:04 | PN ---
S CIWA - CIWA Score Nausea/Vomitin Muscle Tremors: 3 Anxiety: 3 Agitation: 2 Paroxysmal Sweats: 1-Minimal Palms Moist Orientation: 0-Oriented Tacttile Disturbances: 1-Very Mild Itch/Numbness Auditory Disturbances: 1-Very Mild Visual Disturbances: 0-None Headache: 2-Mild CIWA-Ar Total Score: 16 S Progress Note (SOAP) Subjective: alert,irritable,anxious,interrupted sleep,tremor Objective: 04/24/18 12:03 Vital Signs Temperature 95.9 F L 04/24/18 11:33 Pulse Rate 80 04/24/18 11:33 Respiratory Rate 16 04/24/18 11:33 Blood Pressure 98/52 04/24/18 11:33 O2 Sat by Pulse Oximetry (%) Laboratory Last Values WBC 9.7 K/mm3 (4.0-10.0) 04/23/18 06:00 RBC 4.65 M/mm3 (3.60-5.2) 04/23/18 06:00 Hgb 14.4 GM/dL (10.7-15.3) 04/23/18 06:00 Hct 42.7 % (32.4-45.2) 04/23/18 06:00 MCV 91.7 fl (80-96) 04/23/18 06:00 MCH 30.9 pg (25.7-33.7) 04/23/18 06:00 MCHC 33.7 g/dl (32.0-36.0) 04/23/18 06:00 RDW 13.8 % (11.6-15.6) 04/23/18 06:00 Plt Count 497 K/MM3 (134-434) H D 04/23/18 06:00 MPV 8.0 fl (7.5-11.1) 04/23/18 06:00 Sodium 138 mmol/L (136-145) 04/23/18 06:00 Potassium 3.8 mmol/L (3.5-5.1) 04/23/18 06:00 Chloride 101 mmol/L (98-107) 04/23/18 06:00 Carbon Dioxide 26 mmol/L (21-32) 04/23/18 06:00 Anion Gap 11 (8-16) 04/23/18 06:00 BUN 9 mg/dL (7-18) 04/23/18 06:00 Creatinine 0.8 mg/dL (0.55-1.02) 04/23/18 06:00 Creat Clearance w eGFR > 60 (>60) 04/23/18 06:00 POC Glucometer 130 UNITS (80-120) 04/24/18 05:25 Random Glucose 113 mg/dL (74-106) H 04/23/18 06:00 Calcium 9.7 mg/dL (8.5-10.1) 04/23/18 06:00 Total Bilirubin 0.3 mg/dL (0.2-1.0) D 04/23/18 06:00 AST 18 U/L (15-37) 04/23/18 06:00 ALT 26 U/L (12-78) 04/23/18 06:00 Alkaline Phosphatase 94 U/L (45-117) 04/23/18 06:00 Total Protein 7.9 g/dl (6.4-8.2) 04/23/18 06:00 Albumin 3.9 g/dl (3.4-5.0) 04/23/18 06:00 Urine Color Yellow 04/22/18 22:00 Urine Appearance Cloudy 04/22/18 22:00 Urine pH 5.0 (5.0-8.0) 04/22/18 22:00 Ur Specific [place] 1.011 (1.001-1.035) 04/22/18 22:00 Urine Protein Negative (NEGATIVE) 04/22/18 22:00 Urine Glucose (UA) Negative (NEGATIVE) 04/22/18 22:00 Urine Ketones Negative (NEGATIVE) 04/22/18 22:00 Urine Blood Negative (NEGATIVE) 04/22/18 22:00 Urine Nitrite Negative (NEGATIVE) 04/22/18 22:00 Urine Bilirubin Negative (<2.0 mg/dL) 04/22/18 22:00 Urine Urobilinogen Negative mg/dL (0.2-1.0) 04/22/18 22:00 Ur Leukocyte Esterase Negative (NEGATIVE) 04/22/18 22:00 RPR Titer Nonreactive (NONREACTIVE) 04/23/18 06:00 Assessment: 04/24/18 12:03 withdrawal symptom Plan: continue detox,bgm monitoring
[2018-04-24] MEDS: chlordiazePOXIDE 5 MG CAPSULE PO SCH ×2 (17:48→22:18)
[2018-04-24] MEDS: QUEtiapine FUMARATE 200 MG TABLET PO SCH (22:18)
[2018-04-24] MEDS: THIAMINE HCL 100 MG TABLET (FP) PO SCH (22:18)
[2018-04-25] MEDS: chlordiazePOXIDE 5 MG CAPSULE PO SCH ×2 (05:25→10:07)
[2018-04-25] MEDS: sitaGLIPtin PHOSPHATE 25 MG TABLET (FP) PO SCH (10:07)
[2018-04-25] MEDS: PRENATAL VITAMINS W/ FOLIC ACID TABLET (FP) PO SCH (10:07)
[2018-04-25] MEDS: QUEtiapine FUMARATE 100 MG TABLET (FP) PO SCH (10:07)
--- NOTE | 2018-04-25 11:22 | PN ---
BHS Progress Note (SOAP) Subjective: alert,irritable,anxious,interrupted sleep Objective: 04/25/18 11:20 Vital Signs Temperature 97.9 F 04/25/18 10:22 Pulse Rate 85 04/25/18 10:22 Respiratory Rate 18 04/25/18 10:22 Blood Pressure 100/65 04/25/18 10:22 O2 Sat by Pulse Oximetry (%) 04/25/18 11:21 bgm 133 Assessment: 04/25/18 11:21 withdrawal symptom Plan: continue detox
[2018-04-25] MEDS: chlordiazePOXIDE HCL 10 MG CAPSULE PO SCH ×2 (18:23→22:17)
[2018-04-25] MEDS: QUEtiapine FUMARATE 200 MG TABLET PO SCH (22:16)
[2018-04-25] MEDS: THIAMINE HCL 100 MG TABLET (FP) PO SCH (22:17)
[2018-04-26] MEDS: chlordiazePOXIDE HCL 10 MG CAPSULE PO SCH ×2 (06:27→12:05)
--- NOTE | 2018-04-26 08:45 | DS ---
[facility] Detox Discharge Summary Admission Date: 04/22/18 Discharge Date: 04/26/18 - History Present History: Alcohol Dependence Additional Comments: 37 female admitted 04/22/18 for alcohol withdrawal sx completed alcohol detox regimen tolerated well denies alcohol withdrawal sx alert oriented x 3 no acute distress aftercare [facility] patient expressed sobriety through recovery process brief motivational intervention promote relapse prevention - Physical Exam Results Vital Signs: Vital Signs Temperature 98.1 F 04/26/18 07:06 Pulse Rate 91 H 04/26/18 07:06 Respiratory Rate 18 04/26/18 07:06 Blood Pressure 106/70 04/26/18 07:06 O2 Sat by Pulse Oximetry (%) Pertinent Admission Physical Exam Findings: alcohol withdrawal sx Vital Signs Temperature 98.1 F 04/26/18 07:06 Pulse Rate 91 H 04/26/18 07:06 Respiratory Rate 18 04/26/18 07:06 Blood Pressure 106/70 04/26/18 07:06 O2 Sat by Pulse Oximetry (%) Laboratory Last Values WBC 9.7 K/mm3 (4.0-10.0) 04/23/18 06:00 RBC 4.65 M/mm3 (3.60-5.2) 04/23/18 06:00 Hgb 14.4 GM/dL (10.7-15.3) 04/23/18 06:00 Hct 42.7 % (32.4-45.2) 04/23/18 06:00 MCV 91.7 fl (80-96) 04/23/18 06:00 MCH 30.9 pg (25.7-33.7) 04/23/18 06:00 MCHC 33.7 g/dl (32.0-36.0) 04/23/18 06:00 RDW 13.8 % (11.6-15.6) 04/23/18 06:00 Plt Count 497 K/MM3 (134-434) H D 04/23/18 06:00 MPV 8.0 fl (7.5-11.1) 04/23/18 06:00 Sodium 138 mmol/L (136-145) 04/23/18 06:00 Potassium 3.8 mmol/L (3.5-5.1) 04/23/18 06:00 Chloride 101 mmol/L (98-107) 04/23/18 06:00 Carbon Dioxide 26 mmol/L (21-32) 04/23/18 06:00 Anion Gap 11 (8-16) 04/23/18 06:00 BUN 9 mg/dL (7-18) 04/23/18 06:00 Creatinine 0.8 mg/dL (0.55-1.02) 04/23/18 06:00 Creat Clearance w eGFR > 60 (>60) 04/23/18 06:00 POC Glucometer 125 UNITS (80-120) 04/26/18 05:49 Random Glucose 113 mg/dL (74-106) H 04/23/18 06:00 Calcium 9.7 mg/dL (8.5-10.1) 04/23/18 06:00 Total Bilirubin 0.3 mg/dL (0.2-1.0) D 04/23/18 06:00 AST 18 U/L (15-37) 04/23/18 06:00 ALT 26 U/L (12-78) 04/23/18 06:00 Alkaline Phosphatase 94 U/L (45-117) 04/23/18 06:00 Total Protein 7.9 g/dl (6.4-8.2) 04/23/18 06:00 Albumin 3.9 g/dl (3.4-5.0) 04/23/18 06:00 Urine Color Yellow 04/22/18 22:00 Urine Appearance Cloudy 04/22/18 22:00 Urine pH 5.0 (5.0-8.0) 04/22/18 22:00 Ur Specific [place] 1.011 (1.001-1.035) 04/22/18 22:00 Urine Protein Negative (NEGATIVE) 04/22/18 22:00 Urine Glucose (UA) Negative (NEGATIVE) 04/22/18 22:00 Urine Ketones Negative (NEGATIVE) 04/22/18 22:00 Urine Blood Negative (NEGATIVE) 04/22/18 22:00 Urine Nitrite Negative (NEGATIVE) 04/22/18 22:00 Urine Bilirubin Negative (<2.0 mg/dL) 04/22/18 22:00 Urine Urobilinogen Negative mg/dL (0.2-1.0) 04/22/18 22:00 Ur Leukocyte Esterase Negative (NEGATIVE) 04/22/18 22:00 RPR Titer Nonreactive (NONREACTIVE) 04/23/18 06:00 lab noted - Treatment Hospital Course: Detox Protocol Followed, Detoxed Safely, Responded well, Discharged Condition Good, Rehab Referral Accepted Patient has Accepted a Rehab Referral to: [facility] - Medication Discharge Medications: Ambulatory Orders Quetiapine Fumarate [Seroquel -] 100 mg PO DAILY 04/22/18 Quetiapine Fumarate [Seroquel -] 250 mg PO HS 04/22/18 clonazePAM [KlonoPIN -] 2 mg PO DAILY 04/22/18 Quetiapine Fumarate [Seroquel -] 100 mg PO DAILY #30 tablet 04/23/18 Quetiapine Fumarate [Seroquel -] 200 mg PO HS #30 tablet 04/23/18 Sitagliptin Phosphate [Januvia] 25 mg PO DAILY #30 tablet 04/26/18 - Diagnosis (1) Schizophrenia Current Visit: Yes Status: Suspected Qualifiers: Schizophrenia type: unspecified Qualified Code(s): F20.9 - Schizophrenia, unspecified (2) Alcohol dependence with uncomplicated withdrawal Current Visit: Yes Status: Acute (3) Nicotine dependence Current Visit: Yes Status: Acute Qualifiers: Nicotine product type: cigarettes Substance use status: in withdrawal Qualified Code(s): F17.213 - Nicotine dependence, cigarettes, with withdrawal (4) Diabetes Current Visit: Yes Status: Chronic Qualifiers: Diabetes mellitus type: type 2 Diabetes mellitus long-term insulin use: without long-term use Diabetes mellitus complication status: without complication Qualified Code(s): E11.9 - Type 2 diabetes mellitus without complications - AMA Did Patient Leave Against Medical Advice: No
[2018-04-26] MEDS: PRENATAL VITAMINS W/ FOLIC ACID TABLET (FP) PO SCH (10:32)
[2018-04-26] MEDS: sitaGLIPtin PHOSPHATE 25 MG TABLET (FP) PO SCH (10:33)
[2018-04-26] MEDS: QUEtiapine FUMARATE 100 MG TABLET (FP) PO SCH (10:33)
--- NOTE | 2018-04-26 13:55 | PN ---
[facility] Progress Note (SOAP) Subjective: I was asked to evlaute this 37 y/o AA female andrew completed her Detox treatment in the unit and ready for discharge Kleber reviewed, patient was seen and evaluated , she is diagmosed with schizophrenia co-oocuurring with anxiety and mediciated with Serand oquel and Klonopin Her after care plan is to be hooked up to a Rehab program, no I was told that bed was available at this time, eranjessica was told to come back to the hospital next morning upon her discharged Patient explained she was admitted last week to the [facility] and was told the same thing and no plan was carried away She insisted that she would no leave the hospital without being admitted to the Rehab program On mental status examination patient appears calm and cooperative she was somewaht manipu;lative and claimed that if discharged from the hospital immediately without being admitted to Rehab she verbalized she wouuld hurt self or someone else She becamdeely angry loud irritated and uncooperative Given above I suggest that patient remained in the unit and discharged in am Though patient seemed manipulative, I don't enough about the patint to consider an immediate hospital discharge Consider placing the patint on 1;1 for safety
[2018-04-26 14:55] VITALS: BP 118/75; PULSE 101; TEMP 98
== END 2018-04-26 13:44 | disposition home or self-care (01) | DRG 774 ==
LOC: YASAS 10:31 → Y6N 13:11
PROVIDERS: ADMIT Surgery; ATTEND Surgery
PROC: HZ2ZZZZ Detoxification Services for Substance Abuse Treatment (ICD-10-PCS; principal; 2018-04-22)
DX: F10.230 Alcohol dependence with withdrawal, uncomplicated (principal); F14.20 Cocaine dependence, uncomplicated; F17.213 Nicotine dependence, cigarettes, with withdrawal; F20.9 Schizophrenia, unspecified; F25.9 Schizoaffective disorder, unspecified; F41.8 Other specified anxiety disorders; I49.9 Cardiac arrhythmia, unspecified; I44.0 Atrioventricular block, first degree; R00.0 Tachycardia, unspecified; R01.1 Cardiac murmur, unspecified; Z85.41 Personal history of malignant neoplasm of cervix uteri; Z91.5 Personal history of self-harm
CPT/HCPCS: 36415; 80053; 81003; 82962; 85027; 86593; 93005; 93010

== ENCOUNTER 2023-11-02 08:14 | Inpatient (IN) | payer OTHER ==
[2023-11-02] MEDS ORDERED: MAGNESIUM HYDROX 2400MG/30ML ORAL SUSPENSION 30 ML CUP PO PRN (10:48)
[2023-11-02] MEDS ORDERED: BENZONATATE 200 MG CAPSULE PO PRN (10:48)
[2023-11-02] MEDS ORDERED: LOPERAMIDE HCL 2 MG CAPSULE PO PRN (10:48)
[2023-11-02] MEDS ORDERED: MAG HYDROX/AL HYDROX/SIMETH 30 ML UNIT-DOSE CUP PO PRN (10:48)
[2023-11-02] MEDS ORDERED: ONDANSETRON *ODT* 4 MG TABLET SL PRN (10:48)
[2023-11-02] MEDS ORDERED: IBUPROFEN 400 MG TABLET (FP) PO PRN (10:48)
[2023-11-02] MEDS ORDERED: DICYCLOMINE HCL 10 MG CAPSULE PO PRN (10:48)
[2023-11-02] MEDS ORDERED: NALOXONE HCL 0.4 MG/ML VIAL IM PRN (10:48)
[2023-11-02] MEDS ORDERED: diazePAM 5 MG TABLET PO PRN (10:48)
[2023-11-02] MEDS ORDERED: BENZOCAINE/MENTHOL (CHLORASEPTIC ) LOZENGE MM PRN (10:48)
[2023-11-02] MEDS ORDERED: METHOCARBAMOL 500 MG TABLET PO PRN (10:48)
[2023-11-02] MEDS ORDERED: POLYETHYLENE GLYCOL (HEALTHYLAX) 3350 17 GM PACKET PO PRN (10:48)
[2023-11-02] MEDS ORDERED: guaiFENesin 600 MG TABLET.ER (FP) PO PRN (10:48)
[2023-11-02] MEDS ORDERED: hydrOXYzine PAMOATE 25 MG CAPSULE (FP) PO PRN (10:48)
[2023-11-02] MEDS ORDERED: BISMUTH SUBSALICYLATE 524 MG/30 ML PO PRN (10:48)
[2023-11-02] MEDS ORDERED: NICOTINE POLACRILEX 2 MG GUM BUC PRN (10:48)
[2023-11-02] MEDS ORDERED: IBUPROFEN 600 MG TABLET (FP) PO PRN (10:48)
[2023-11-02] MEDS ORDERED: ACETAMINOPHEN 325 MG TABLET (FP) PO PRN (10:48)
[2023-11-02] MEDS ORDERED: NALOXONE HCL (KLOXXADO) 8 MG SPRAY NS PRN (10:48)
[2023-11-02 11:10] VITALS: BMI 19.5
[2023-11-02] MEDS ORDERED: diazePAM 5 MG TABLET ONE (11:21)
[2023-11-02] MEDS ORDERED: IBUPROFEN 600 MG TABLET (FP) PO ONE (11:26)
[2023-11-02] MEDS: diazePAM 5 MG TABLET PO SCH ×3 (11:28→22:07)
[2023-11-02] MEDS: THIAMINE HCL 100 MG TABLET (FP) PO SCH (22:06)
[2023-11-02] MEDS: MELATONIN 5 MG TABLETS PO SCH (22:06)
[2023-11-02] MEDS: QUEtiapine FUMARATE 100 MG TABLET (FP) PO SCH (22:07)
[2023-11-03] MEDS: diazePAM 5 MG TABLET PO SCH ×4 (05:54→21:59)
[2023-11-03] MEDS: PRENATAL VITAMINS W/ FOLIC ACID TABLET (FP) PO SCH (10:19)
[2023-11-03 11:31] LABS: HEMATOCRIT 40.4 % (32.4-45.2); HEMOGLOBIN 13.3 GM/dL (10.7-15.3); MCH 30.5 pg (25.7-33.7); MCHC 32.9 g/dl (32.0-36.0); MEAN CELL VOLUME 92.7 fl (80-96); PLATELET COUNT 409 10^3/uL (134-434); RBC 4.36 M/mm3 (3.60-5.2); RDW 13.9 % (11.6-15.6); WHITE BLOOD COUNT 4.7 K/mm3 (4.0-10.0)
[2023-11-03 11:42] LABS: CHLORIDE 105 mmol/L (98-107); SODIUM 138 mmol/L (136-145)
[2023-11-03 11:44] LABS: ALBUMIN 3.2 g/dl (3.4-5.0); ANION GAP 3 mmol/L (4-13); BLOOD UREA NITROGEN 10.1 mg/dL (7-18); CALCIUM 9.6 mg/dL (8.5-10.1); CO2 30 mmol/L (21-32); GLUCOSE,RANDOM 110 mg/dL (74-106)
[2023-11-03 11:47] LABS: SGOT/AST 37 U/L (15-37); SGPT/ALT 38 U/L (13-61)
[2023-11-03 11:48] LABS: CREATININE 0.5 mg/dL (0.55-1.3)
[2023-11-03 11:49] LABS: BILIRUBIN,TOTAL 0.1 mg/dL (0.2-1); TOT PROT 6.6 g/dl (6.4-8.2)
[2023-11-03 11:50] LABS: ALK PHOS 75 U/L (45-117)
[2023-11-03] MEDS: MELATONIN 5 MG TABLETS PO SCH (21:59)
[2023-11-03] MEDS: QUEtiapine FUMARATE 100 MG TABLET (FP) PO SCH (21:59)
[2023-11-03] MEDS: THIAMINE HCL 100 MG TABLET (FP) PO SCH (21:59)
[2023-11-04] MEDS: diazePAM 5 MG TABLET PO SCH ×2 (05:47→14:00)
[2023-11-04] MEDS: sitaGLIPtin PHOSPHATE 50 MG TABLET PO SCH (06:25)
[2023-11-04] MEDS: PRENATAL VITAMINS W/ FOLIC ACID TABLET (FP) PO SCH (10:20)
[2023-11-04] MEDS ORDERED: diazePAM 5 MG TABLET PO SCH (22:00)
[2023-11-04] MEDS: MELATONIN 5 MG TABLETS PO SCH (22:02)
[2023-11-04] MEDS: THIAMINE HCL 100 MG TABLET (FP) PO SCH (22:02)
[2023-11-04] MEDS: QUEtiapine FUMARATE 100 MG TABLET (FP) PO SCH (22:02)
[2023-11-05] MEDS ORDERED: diazePAM 5 MG TABLET PO SCH (06:00)
[2023-11-05] MEDS: sitaGLIPtin PHOSPHATE 50 MG TABLET PO SCH (07:00)
[2023-11-05 09:31] VITALS: RESP 18
[2023-11-05] MEDS: PRENATAL VITAMINS W/ FOLIC ACID TABLET (FP) PO SCH (09:45)
[2023-11-05 13:07] VITALS: BP 103/65; PULSE 79; TEMP 97.5
[2023-11-05 13:42] LABS: EPI CELLS >36 /uL (0-25.1); HYALINE CASTS 0 /uL (0-3.1); URINE APPEARANCE CLEAR; URINE BACTERIA 376 /uL (0-1359); URINE BILIRUBIN NEGATIVE (NEGATIVE); URINE COLOR YELLOW; URINE GLUCOSE (UA) NEGATIVE (NEGATIVE); URINE KETONE NEGATIVE (NEGATIVE); URINE LEUK ESTERASE TRACE (NEGATIVE); URINE NITRITE NEGATIVE (NEGATIVE); URINE PROTEIN NEGATIVE (NEGATIVE); URINE RBC 9 /uL (0-23.9); URINE UROBILINOGEN 0.2 mg/dL (0.2-1.0); URINE WBC 46 /uL (0-25.8)
[2023-11-06] MEDS ORDERED: diazePAM 5 MG TABLET PO ONE (06:00)
== END 2023-11-05 16:56 | disposition home or self-care (01) | DRG 774 ==
LOC: SUATTDRO 08:14 → YASAS 08:14 → Y6N 11:38
PROVIDERS: ADMIT Allergy & Immunology; ATTEND Surgery
PROC: HZ2ZZZZ Detoxification Services for Substance Abuse Treatment (ICD-10-PCS; principal; 2023-11-02)
DX: F10.230 Alcohol dependence with withdrawal, uncomplicated (principal); F14.20 Cocaine dependence, uncomplicated; F12.20 Cannabis dependence, uncomplicated; F17.210 Nicotine dependence, cigarettes, uncomplicated; F20.9 Schizophrenia, unspecified; F19.282 Other psychoactive substance dependence with psychoactive substance-induced sleep disorder; F19.24 Other psychoactive substance dependence with psychoactive substance-induced mood disorder; E11.9 Type 2 diabetes mellitus without complications; Z79.84 Long term (current) use of oral hypoglycemic drugs; R63.4 Abnormal weight loss; Z68.1 Body mass index [BMI] 19.9 or less, adult; Z28.310 Unvaccinated for COVID-19; Z28.9 Immunization not carried out for unspecified reason
CPT/HCPCS: 36415; 80053; 80307; 81003; 81025; 82962; 85027; 86780; 87635; 87811